=== PATIENT | female | born 1970 | race Caucasian/White ===

== ENCOUNTER → 2016-07-12 | Outpatient (CLI) | payer OTHER ==
--- NOTE | 2016-07-12 14:47 | REP ---
LEFT HIP, TWO VIEWS: HISTORY: Bursitis. There is no acute fracture or dislocation. The joint space is normal in appearance. IMPRESSION: There is no acute fracture or dislocation.
== END ==
LOC: M CLY 14:18
PROVIDERS: ATTEND Family Medicine
DX: M70.62 Trochanteric bursitis, left hip (principal); M25.552 Pain in left hip

== ENCOUNTER → 2016-07-12 | Outpatient (REF) | payer OTHER ==
[2016-07-12 17:55] LABS: ANION GAP 7 MEQ/L (8-16); BLOOD UREA NITROGEN 16 MG/DL (7-18); CALCIUM LEVEL 8.7 MG/DL (8.5-10.1); CARBON DIOXIDE LEVEL 31 MEQ/L (21-32); CHLORIDE LEVEL 100 MEQ/L (98-107); CREATININE FOR GFR 0.94 MG/DL (0.55-1.02); FREE T4 0.94 NG/DL (0.76-1.46); GLOMERULAR FILTRATION RATE > 60.0 (>58); GLUCOSE, FASTING 80 MG/DL (70-105); POTASSIUM SERUM 4.2 MEQ/L (3.5-5.1); SODIUM LEVEL 138 MEQ/L (136-145)
== END ==
LOC: M SFHCCLAY 13:57
PROVIDERS: ATTEND Family Medicine
DX: R53.81 Other malaise (principal)

== ENCOUNTER 2019-03-08 11:19 | Day surgery (SDC) | payer OTHER ==
[~2019-03-08] VITALS: Ht 157.5 cm; Wt 102.0 kg
[~2019-03-08 11:19] MED LIST: BENA20TA PO; ESCI5SOL3 PO; PROAAER10 INH; RANI15TA PO; SPIR-10 PO
[2019-03-08] MEDS ORDERED: fentaNYL 100 MCG/2 ML INJECTION (J3010) As Ordered ONE (11:56)
[2019-03-08] MEDS ORDERED: PROPOFOL 200 MG/20 ML VIAL As Ordered ONE (11:57)
[2019-03-08] MEDS ORDERED: LIDOCAINE 2% INJ 100 MG/5 ML SDV (FOR ANES.) As Ordered ONE (11:57)
--- NOTE | 2019-03-08 12:19 | ROOR ---
Patient Name: Jia Thomas Procedure Date: 03/08/2019 11:54 AM Date of : 1970 Age: 49 Room: [facility] Gender: Female Note Status: Finalized Procedure: Upper GI endoscopy Indications: Epigastric abdominal pain Providers: Nicko RYAN MD Referring MD: Dereck Persaud MD Requesting Provider: Medicines: Monitored Anesthesia Care Complications: No immediate complications. Procedure: Pre-Anesthesia Assessment: - The heart rate, respiratory rate, oxygen saturations, blood pressure, adequacy of pulmonary ventilation, and response to care were monitored throughout the procedure. The Endoscope was introduced through the mouth, and advanced to the second part of duodenum. The upper GI endoscopy was accomplished without difficulty. The patient tolerated the procedure well. Findings: Four cratered esophageal ulcers with no bleeding and no stigmata of recent bleeding were found 26 to 31 cm from the incisors. The largest lesion was 10 mm in largest dimension. This was biopsied with a cold forceps for histology. Multiple tongues of salmon-colored mucosa were present from 26 to 31 cm. The maximum longitudinal extent of these esophageal mucosal changes was 5 cm in length. Biopsies were taken with a cold forceps for histology. Small Hiatal Hernia. The exam was otherwise without abnormality. Impression: - Moderate to severe esophagitis and several large deep esophageal ulcers. Biopsied. - [place]-colored mucosa suspicious for long-segment Fraire's esophagus. Biopsied. - Small Hiatal Hernia. - The examination was otherwise normal. Recommendation: - Use Prilosec (omeprazole) 20 mg PO BID indefinitely. - (the script was sent to your pharmacy on file) - Telephone endoscopist for pathology results in 2 weeks. - Repeat upper endoscopy for surveillance based on pathology results. Nicko Ryan MD Nicko RYAN MD 03/08/2019 12:19:11 PM Electronically signed by Nicko RYAN MD Number of Addenda: 0 Note Initiated On: 03/08/2019 11:54 AM Estimated Blood Loss: Estimated blood loss: none.
--- NOTE | 2019-03-08 12:36 | ROOR ---
Patient Name: Jia Thomas Procedure Date: 03/08/2019 11:55 AM Date of : 1970 Age: 49 Room: [facility] Gender: Female Note Status: Finalized Procedure: Colonoscopy Indications: Change in bowel habits Providers: Nicko THOMAS MD Referring MD: Dereck Persaud MD Requesting Provider: Medicines: Monitored Anesthesia Care Complications: No immediate complications. Procedure: Pre-Anesthesia Assessment: - The heart rate, respiratory rate, oxygen saturations, blood pressure, adequacy of pulmonary ventilation, and response to care were monitored throughout the procedure. The Colonoscope was introduced through the anus and advanced to 10 cm into the ileum. The colonoscopy was performed without difficulty. The patient tolerated the procedure well. The quality of the bowel preparation was good. Findings: The perianal and digital rectal examinations were normal. A diminutive polyp was found in the appendiceal orifice. The polyp was sessile. The polyp was removed with a jumbo cold forceps. Resection and retrieval were complete. The exam was otherwise normal throughout the examined colon. The terminal ileum appeared normal. Biopsies for histology were taken with a cold forceps for evaluation of microscopic colitis. Impression: - One diminutive polyp at the appendiceal orifice, removed with a jumbo cold forceps. Resected and retrieved. - The colon is otherwise normal. - The examined portion of the ileum was normal. - Biopsies were taken with a cold forceps for evaluation of microscopic colitis. Recommendation: - Telephone endoscopist for pathology results in 2 weeks. - If the pathology report reveals adenomatous tissue, then repeat the colonoscopy for surveillance in 5 years. - Await pathology results. Nicko Thomas MD Nicko THOMAS MD 03/08/2019 12:36:33 PM Electronically signed by Nicko THOMAS MD Number of Addenda: 0 Note Initiated On: 03/08/2019 11:55 AM Estimated Blood Loss: Estimated blood loss: none.
[2019-03-08 13:10] VITALS: BP 162/86
[2019-03-08] MEDS ORDERED: NS 1,000 ML IV ONE (13:15)
== END 2019-03-08 13:20 | disposition home or self-care (01) ==
LOC: M OPP 11:19
PROVIDERS: ATTEND Internal Medicine Gastroenterology
DX: D12.1 Benign neoplasm of appendix (principal); R19.4 Change in bowel habit; K44.9 Diaphragmatic hernia without obstruction or gangrene; K22.10 Ulcer of esophagus without bleeding; K22.8 Other specified diseases of esophagus; R10.13 Epigastric pain; Z79.899 Other long term (current) drug therapy; Z88.2 Allergy status to sulfonamides; Z91.013 Allergy to seafood
CPT/HCPCS: 43239; 45380; 88305; J3010

== ENCOUNTER → 2019-06-04 | Outpatient (REF) | payer OTHER, BC | LOC: M LAB REF 18:50 | PROVIDERS: ATTEND Dermatology | DX: L82.1 Other seborrheic keratosis (principal) ==

== ENCOUNTER → 2019-07-23 | Outpatient (CLI) | payer BC ==
[~2019-07-23] MED LIST changes: +BCP PO; +OMEP1CAP73 PO
== END ==
LOC: M LABSMTC 10:36
PROVIDERS: ATTEND Anesthesiology
DX: Z01.818 Encounter for other preprocedural examination (principal); Z11.59 Encounter for screening for other viral diseases

== ENCOUNTER 2019-07-26 07:47 | Day surgery (SDC) | payer BC ==
[~2019-07-26] VITALS: Ht 157.5 cm; Wt 104.8 kg
[~2019-07-26 07:47] MED LIST changes: +NS 1,000 ML IV ONE
[2019-07-26] MEDS ORDERED: fentaNYL 100 MCG/2 ML INJECTION (J3010) As Ordered ONE (09:03)
[2019-07-26] MEDS ORDERED: LIDOCAINE 2% 100MG/5ML SDV (FOR ANES.) As Ordered ONE (09:03)
[2019-07-26] MEDS ORDERED: propofoL 200 MG/20 ML VIAL As Ordered ONE (09:03)
--- NOTE | 2019-07-26 09:30 | ROOR ---
Patient Name: Jia Thomas Procedure Date: 07/26/2019 8:53 AM Date of : 1970 Age: 49 Room: [facility] Gender: Female Note Status: Finalized Procedure: Upper GI endoscopy Indications: Surveillance procedure, Surveillance for malignancy due to personal history of Fraire's esophagus, Dysphagia, Follow-up of esophageal ulcer Providers: Nicko RYAN MD Referring MD: Dereck Persaud MD Requesting Provider: Medicines: Monitored Anesthesia Care Complications: No immediate complications. Procedure: Pre-Anesthesia Assessment: - The heart rate, respiratory rate, oxygen saturations, blood pressure, adequacy of pulmonary ventilation, and response to care were monitored throughout the procedure. The Endoscope was introduced through the mouth, and advanced to the second part of duodenum. The upper GI endoscopy was accomplished without difficulty. The patient tolerated the procedure well. Findings: There were esophageal mucosal changes consistent with long-segment Fraire's esophagus present in the lower third of the esophagus. The maximum longitudinal extent of these mucosal changes was 4 cm in length. The esophageal ulcers seen on previous exam have healed. small nodularities/scars are present along with mucosal cicatrization. Mucosa was biopsied with a cold forceps for histology randomly in the lower third of the esophagus and from 27 to 32 cm from the incisors. A total of 3 specimen bottles were sent to pathology. One benign-appearing, intrinsic moderate stenosis/cicatrization was found at the gastroesophageal junction. This stenosis measured 1 cm (in length). The stenosis was traversed. A TTS dilator was passed through the scope. Dilation with a 15-16.5-18 mm balloon dilator was performed to 16.5 mm. The dilation site was examined and showed moderate mucosal disruption and moderate improvement in luminal narrowing. A medium amount of food (residue) was found in the gastric body. Lavaged/removed. (Presence of food after 8 hour fast is consistent with Delayed Gastric emptying/Gastroparesis) A medium-sized hiatal hernia was present. The entire examined stomach was normal. The examined duodenum was normal. Impression: - Esophageal mucosal changes consistent with 5 cm long-segment Fraire's esophagus. Biopsied. - Benign-appearing esophageal stenosis. Dilated. - A medium amount of food (residue) in the stomach, consistent with gastroparesis. - Medium-sized hiatal hernia. - Normal stomach. - Normal examined duodenum. Recommendation: - Continue present medications. (omeprazole twice a day for Barretts esophagus). - Repeat EGD for barrets esophagus surveillance will depend on todays biopsy. - Call my office in about 2 weeks for pathology results and recommendations. - Your stomach had food contents from your last meal. This is a sign that your stomach does not empty well (gastroparesis). You will need to adjust your diet. - Gastroparesis diet: - Eat smaller, more frequent meals throughout the day. - Low fat diet. - Liquid/soft foods are tolerated better than solid foods. - Low fiber/well cooked vegetables are tolerated better than high fiber/fibrous foods/raw vegetables. - Avoid medications that inhibit gastric/intestinal motility such as narcotic medications. Nicko Ryan MD Nicko RYAN MD 07/26/2019 9:30:00 AM Electronically signed by Nicko RYAN MD Number of Addenda: 0 Note Initiated On: 07/26/2019 8:53 AM Estimated Blood Loss: Estimated blood loss: none.
[2019-07-26 09:57] VITALS: BP 157/80
== END 2019-07-26 10:08 | disposition home or self-care (01) ==
LOC: M OPP 07:47
PROVIDERS: ATTEND Internal Medicine Gastroenterology
DX: K22.2 Esophageal obstruction (principal); K44.9 Diaphragmatic hernia without obstruction or gangrene; K22.70 Barrett's esophagus without dysplasia; R13.10 Dysphagia, unspecified; Z88.2 Allergy status to sulfonamides; Z88.4 Allergy status to anesthetic agent; Z91.013 Allergy to seafood; Z91.040 Latex allergy status
CPT/HCPCS: 43239; 43249; 88305; J3010

== ENCOUNTER → 2019-11-05 | Outpatient (REF) | payer BC ==
[~2019-11-05] MED LIST changes: -NS 1,000 ML IV ONE
[2019-12-08 15:29] LABS: BASO # 0.1 10^3/uL (0.0-0.2); BASO % 0.9 % (0.0-1.0); EOS # 0.5 10^3/uL (0.0-0.5); EOS % 8.3 % (0.0-3.0); HEMATOCRIT 38.7 % (36.0-47.0); HEMOGLOBIN 12.7 g/dl (12.0-15.5); LYMPH # 1.2 10^3/uL (1.5-5.0); LYMPH % 21.5 % (24.0-44.0); MEAN CORPUSCULAR HEMOGLOBIN 30.5 pg (27.0-33.0); MEAN CORPUSCULAR HGB CONC 32.8 g/dl (32.0-36.5); MONO # 0.6 10^3/uL (0.0-0.8); MONO % 9.7 % (0.0-5.0); NEUTROPHILS # 3.4 10^3/uL (1.5-8.5); NEUTROPHILS % 59.3 % (36.0-66.0); PLATELET COUNT, AUTOMATED 271 10^3/uL (150-450); RED BLOOD COUNT 4.16 10^6/uL (4.00-5.40); WHITE BLOOD COUNT 5.8 10^3/uL (4.0-10.0)
[2019-12-20 16:39] LABS: ALBUMIN 3.8 GM/DL (3.2-5.2); ALT/SGPT 25 U/L (12-78); BILIRUBIN,TOTAL 0.5 MG/DL (0.2-1.0); BLOOD UREA NITROGEN 9 MG/DL (7-18); CALCIUM LEVEL 8.8 MG/DL (8.5-10.1); CARBON DIOXIDE LEVEL 28 MEQ/L (21-32); CHLORIDE LEVEL 105 MEQ/L (98-107); FERRITIN 28 NG/ML (8-252); GLOMERULAR FILTRATION RATE > 60.0 (>58); GLUCOSE, FASTING 87 MG/DL (70-100); IRON (FE) 55 UG/DL (50-170); PHOSPHORUS LEVEL 2.8 MG/DL (2.5-4.9); POTASSIUM SERUM 3.6 MEQ/L (3.5-5.1); SODIUM LEVEL 139 MEQ/L (136-145); TOTAL 25(OH) VITAMIN D 29.7 NG/ML (30.0-100.0); TOTAL IRON BINDING CAPACITY 250 UG/DL (250-450); TOTAL PROTEIN 6.9 GM/DL (6.4-8.2); VITAMIN B12 LEVEL 744 PG/ML (247-911)
[2019-12-20 16:40] LABS: HEMOGLOBIN A1c 5.3 %
[2019-12-23 08:32] LABS: HEMATOCRIT 38.7 % (36.0-47.0)
== END ==
LOC: M LABDRAWC 12:01
PROVIDERS: ATTEND Surgery
DX: K91.2 Postsurgical malabsorption, not elsewhere classified (principal); E55.9 Vitamin D deficiency, unspecified; Z98.84 Bariatric surgery status

== ENCOUNTER → 2020-06-18 | Outpatient (REF) | payer BC | LOC: M SFHCWAGY 17:16 | PROVIDERS: ATTEND Nurse Practitioner Family | DX: Z12.4 Encounter for screening for malignant neoplasm of cervix (principal) ==

== ENCOUNTER → 2020-06-18 | Outpatient (CLI) | payer BC ==
--- NOTE | 2020-06-18 16:21 | REPMRS ---
Patient History The patient states she had a clinical breast exam in 05/2020 Patient is nulliparous. Family history of breast cancer at age 45 in maternal aunt, colorectal cancer at age 50 or over in maternal grandmother. Digital Woman Screen Mammo: June 18, 2020 - Exam #: [id number] Bilateral CC and MLO view(s) were taken. Technologist: Marybel Bean, Technologist No prior studies available for comparison. FINDINGS: There are scattered fibroglandular densities. The Volpara volumetric breast density category is: B. There is no evidence of dominant mass, architectural distortion, or grouped microcalcification typical of malignancy. 3-D tomosynthesis shows no additional findings. Assessment: BI-RADS/ACR category 1 mammogram. Negative Mammogram. Recommendation Routine screening mammogram of both breasts in 1 year (for women over age 40). This patient's [facility] Lifetime Breast Cancer RIsk is estimated at 17.6 %. This mammogram was interpreted with the aid of an FDA-approved computer-aided dectection system. Electronically Signed By: Deyvi Johnson MD 06/18/20 9981
== END ==
LOC: M WHC 14:59
PROVIDERS: ATTEND Nurse Practitioner Family
DX: Z12.31 Encounter for screening mammogram for malignant neoplasm of breast (principal); Z80.3 Family history of malignant neoplasm of breast

== ENCOUNTER → 2020-06-29 | Outpatient (REF) | payer BC | LOC: M SFHCWAGY 13:28 | PROVIDERS: ATTEND Nurse Practitioner Women's Health | DX: R87.612 Low grade squamous intraepithelial lesion on cytologic smear of cervix (LGSIL) (principal) ==

== ENCOUNTER → 2020-07-17 | Outpatient (REF) | payer BC ==
[2020-07-17 16:15] LABS: BASO # 0.1 10^3/uL (0.0-0.2); BASO % 0.9 % (0.0-1.0); EOS # 0.2 10^3/uL (0.0-0.5); EOS % 3.4 % (0.0-3.0); HEMATOCRIT 39.2 % (36.0-47.0); HEMOGLOBIN 13.2 g/dl (12.0-15.5); LYMPH # 1.2 10^3/uL (1.5-5.0); LYMPH % 17.7 % (24.0-44.0); MEAN CORPUSCULAR HEMOGLOBIN 30.5 pg (27.0-33.0); MEAN CORPUSCULAR HGB CONC 33.7 g/dl (32.0-36.5); MEAN CORPUSCULAR VOLUME 90.5 fl (80.0-96.0); MONO # 0.6 10^3/uL (0.0-0.8); MONO % 9.1 % (2.0-8.0); NEUTROPHILS # 4.8 10^3/uL (1.5-8.5); NEUTROPHILS % 68.6 % (36.0-66.0); PLATELET COUNT, AUTOMATED 301 10^3/uL (150-450); RED BLOOD COUNT 4.33 10^6/uL (4.00-5.40)
[2020-07-17 16:20] LABS: HEMATOCRIT 39.6 % (36.0-47.0)
[2020-07-17 16:45] LABS: ALBUMIN 3.9 GM/DL (3.2-5.2); ALT/SGPT 16 U/L (12-78); BILIRUBIN,TOTAL 1.1 MG/DL (0.2-1.0); BLOOD UREA NITROGEN 10 MG/DL (7-18); CALCIUM LEVEL 9.5 MG/DL (8.5-10.1); CARBON DIOXIDE LEVEL 30 MEQ/L (21-32); CHLORIDE LEVEL 103 MEQ/L (98-107); CREATININE FOR GFR 0.78 MG/DL (0.55-1.30); FERRITIN 9 NG/ML (8-252); GLOMERULAR FILTRATION RATE > 60.0 (>58); GLUCOSE, FASTING 68 MG/DL (70-100); IRON (FE) 90 UG/DL (50-170); MAGNESIUM LEVEL 2.2 MG/DL (1.8-2.4); PERCENT SATURATION 23.9 % (13.2-45.0); PHOSPHORUS LEVEL 2.9 MG/DL (2.5-4.9); POTASSIUM SERUM 3.5 MEQ/L (3.5-5.1); SODIUM LEVEL 138 MEQ/L (136-145); TOTAL IRON BINDING CAPACITY 377 UG/DL (250-450); TOTAL PROTEIN 7.7 GM/DL (6.4-8.2)
[2020-07-17 16:51] LABS: TOTAL 25(OH) VITAMIN D 20.4 NG/ML (30.0-100.0); VITAMIN B12 LEVEL 645 PG/ML (247-911)
[2020-07-17 17:10] LABS: HEMOGLOBIN A1c 5.4 %
== END ==
LOC: M LABDRAWC 15:49
PROVIDERS: ATTEND Physician Assistant
DX: K91.2 Postsurgical malabsorption, not elsewhere classified (principal); Z98.84 Bariatric surgery status; E55.9 Vitamin D deficiency, unspecified; Z86.39 Personal history of other endocrine, nutritional and metabolic disease

== ENCOUNTER → 2020-07-17 | Outpatient (REF) | payer BC ==
[2020-07-17 16:49] LABS: THYROID STIMULATING HORMONE 2.42 uIU/ML (0.358-3.740)
== END ==
LOC: M SFHCCLAY 11:39
PROVIDERS: ATTEND Family Medicine
DX: R53.82 Chronic fatigue, unspecified (principal)

== ENCOUNTER → 2021-05-19 | Outpatient (REF) | payer BC | LOC: M SFHCCLAY 11:30 | PROVIDERS: ATTEND Family Medicine | DX: Z53.9 Procedure and treatment not carried out, unspecified reason (principal); J45.30 Mild persistent asthma, uncomplicated; I10 Essential (primary) hypertension; Z98.84 Bariatric surgery status ==

== ENCOUNTER → 2021-07-14 | Outpatient (REF) | payer BC | LOC: M PLALAB 12:32 | PROVIDERS: ATTEND Advanced Practice Midwife | DX: Z12.4 Encounter for screening for malignant neoplasm of cervix (principal); R87.612 Low grade squamous intraepithelial lesion on cytologic smear of cervix (LGSIL) ==

== ENCOUNTER → 2021-07-14 | Outpatient (CLI) | payer BC | LOC: M PLALAB 16:04 | PROVIDERS: ATTEND Advanced Practice Midwife | DX: Z80.3 Family history of malignant neoplasm of breast (principal); Z80.0 Family history of malignant neoplasm of digestive organs; Z80.8 Family history of malignant neoplasm of other organs or systems ==

== ENCOUNTER → 2021-07-14 | Outpatient (CLI) | payer BC | LOC: M WHC 13:25 | PROVIDERS: ATTEND Advanced Practice Midwife | DX: Z12.31 Encounter for screening mammogram for malignant neoplasm of breast (principal) ==

== ENCOUNTER → 2021-07-14 | Outpatient (REF) | payer BC | LOC: M SFHCWAGY 18:29 | PROVIDERS: ATTEND Advanced Practice Midwife | DX: Z01.419 Encounter for gynecological examination (general) (routine) without abnormal findings (principal); Z12.4 Encounter for screening for malignant neoplasm of cervix; R87.612 Low grade squamous intraepithelial lesion on cytologic smear of cervix (LGSIL) | CPT/HCPCS: 87624; G0123 ==

== ENCOUNTER → 2021-11-05 | Outpatient (REF) | payer BC ==
[2021-11-05 17:53] LABS: HEMATOCRIT 36.2 % (36.0-47.0); HEMOGLOBIN 11.7 g/dl (12.0-15.5); MEAN CORPUSCULAR HEMOGLOBIN 28.3 pg (27.0-33.0); MEAN CORPUSCULAR HGB CONC 32.3 g/dl (32.0-36.5); MEAN CORPUSCULAR VOLUME 87.4 fl (80.0-96.0); PLATELET COUNT, AUTOMATED 324 10^3/uL (150-450); RED BLOOD COUNT 4.14 10^6/uL (4.00-5.40); WHITE BLOOD COUNT 6.4 10^3/uL (4.0-10.0)
[2021-11-05 18:06] LABS: ERYTHROCYTE SEDIMENTATION RATE 37 mm/hr (0-20)
[2021-11-05 18:45] LABS: ALBUMIN 3.5 GM/DL (3.2-5.2); ALT/SGPT 16 U/L (12-78); BILIRUBIN,TOTAL 1.1 MG/DL (0.2-1.0); BLOOD UREA NITROGEN 8 MG/DL (7-18); CALCIUM LEVEL 9.1 MG/DL (8.5-10.1); CARBON DIOXIDE LEVEL 32 MEQ/L (21-32); CHLORIDE LEVEL 99 MEQ/L (98-107); CHOLESTEROL LEVEL 190 MG/DL (<200); CHOLESTEROL RISK RATIO 3.064 (<5); CREATININE FOR GFR 0.76 MG/DL (0.55-1.30); GLOMERULAR FILTRATION RATE > 60.0 (>58); GLUCOSE, FASTING 87 MG/DL (70-100); HDL CHOLESTEROL 62 MG/DL (>40); LDL CHOLESTEROL 110 MG/DL (<100); NON-HDL-C 128 MG/DL; POTASSIUM SERUM 3.5 MEQ/L (3.5-5.1); SODIUM LEVEL 138 MEQ/L (136-145); THYROID STIMULATING HORMONE 0.589 uIU/ML (0.358-3.740); TOTAL PROTEIN 7.3 GM/DL (6.4-8.2); TRIGLYCERIDES LEVEL 91 MG/DL (<150)
[2021-11-09 15:35] LABS: ALBUMIN 3.63 GM/DL (3.29-5.55); ALBUMIN % 49.7 % (55.8-66.1); ALPHA-1-GLOBULINS 0.29 GM/DL (0.17-0.41); ALPHA-2-GLOBULINS 0.91 GM/DL (0.42-0.99); ALPHA-2-GLOBULINS % 12.5 % (7.1-11.8); BETA-1-GLOBULINS 0.58 GM/DL (0.28-0.60); BETA-1-GLOBULINS % 7.9 % (4.7-7.2); BETA-2-GLOBULINS % 6.9 % (3.2-6.5); GAMMA GLOBULINS 1.39 GM/DL (0.65-1.58)
== END ==
LOC: M SFHCCLAY 10:40
PROVIDERS: ATTEND Family Medicine
DX: I10 Essential (primary) hypertension (principal); J45.30 Mild persistent asthma, uncomplicated; H34.8310 Tributary (branch) retinal vein occlusion, right eye, with macular edema; K21.9 Gastro-esophageal reflux disease without esophagitis

== ENCOUNTER → 2022-02-04 | Outpatient (REF) | payer BC | LOC: M SFHCCLAY 13:33 | PROVIDERS: ATTEND Family Medicine | DX: D89.2 Hypergammaglobulinemia, unspecified (principal); R70.0 Elevated erythrocyte sedimentation rate ==

== ENCOUNTER 2022-11-10 12:28 | Day surgery (SDC) | payer BC ==
[~2022-11-10] VITALS: Ht 157.5 cm; Wt 76.9 kg
[~2022-11-10 12:28] MED LIST changes: +B-12100010 PO; +BIOT2500 PO; +LEXA1TAB2 PO; +LIDOCAINE 2% 100MG/5ML SDV (FOR ANES.) As Ordered ONE; +METO1TAB32 PO; +NS 1,000 ML IV ONE; +OMEP40CA5 PO; +PROBCAP14 PO; +VENTAER INH; +VITA500075 PO; +propofoL 200 MG/20 ML VIAL As Ordered ONE; +zinc PO
[2022-11-10] MEDS ORDERED: fentaNYL 100 MCG/2 ML INJECTION As Ordered ONE (12:34)
[2022-11-10 14:31] VITALS: BP 167/81; TEMP 97.2; O2SAT 100
== END 2022-11-10 14:30 | disposition home or self-care (01) ==
LOC: M OPP 12:28
PROVIDERS: ATTEND Internal Medicine Gastroenterology
DX: K22.70 Barrett's esophagus without dysplasia (principal); K44.9 Diaphragmatic hernia without obstruction or gangrene; Z98.0 Intestinal bypass and anastomosis status; Z88.2 Allergy status to sulfonamides; Z88.3 Allergy status to other anti-infective agents; Z79.899 Other long term (current) drug therapy; Z91.013 Allergy to seafood; Z91.040 Latex allergy status; Z98.84 Bariatric surgery status
CPT/HCPCS: 43239; 88305; J3010

== ENCOUNTER → 2023-05-15 | Outpatient (REF) | payer BC ==
[~2023-05-15] MED LIST changes: -LIDOCAINE 2% 100MG/5ML SDV (FOR ANES.) As Ordered ONE; -NS 1,000 ML IV ONE; -propofoL 200 MG/20 ML VIAL As Ordered ONE
== END ==
LOC: M SFHCDERM 17:35
PROVIDERS: ATTEND Physician Assistant
DX: D49.2 Neoplasm of unspecified behavior of bone, soft tissue, and skin (principal)

== ENCOUNTER → 2023-06-29 | Outpatient (REF) | payer BC ==
[2023-06-29 17:34] LABS: HEMATOCRIT 29.6 % (36.0-47.0); HEMOGLOBIN 8.6 g/dl (12.0-15.5); MEAN CORPUSCULAR HEMOGLOBIN 21.8 pg (27.0-33.0); MEAN CORPUSCULAR HGB CONC 29.1 g/dl (32.0-36.5); MEAN CORPUSCULAR VOLUME 75.1 fl (80.0-96.0); PLATELET COUNT, AUTOMATED 484 10^3/uL (150-450); RED BLOOD COUNT 3.94 10^6/uL (4.00-5.40); WHITE BLOOD COUNT 6.7 10^3/uL (4.0-10.0)
[2023-06-29 18:09] LABS: ALBUMIN 3.4 G/DL (3.2-5.2); ALKALINE PHOSPHATASE 128 U/L (46-116); ALT/SGPT 13 U/L (7.0-40); AST/SGOT 20 U/L (<34); BILIRUBIN,TOTAL 0.8 MG/DL (0.3-1.2); BLOOD UREA NITROGEN 10 MG/DL (9-23); CALCIUM LEVEL 9.4 MG/DL (8.5-10.1); CARBON DIOXIDE LEVEL 27 MMOL/L (20-31); CHLORIDE LEVEL 105 MMOL/L (98-107); CHOLESTEROL LEVEL 154 MG/DL (<200); CREATININE FOR GFR 0.68 MG/DL (0.55-1.30); GLOMERULAR FILTRATION RATE > 60.0 (>51); GLUCOSE, FASTING 92 MG/DL (60-100); HDL CHOLESTEROL 51.3 MG/DL (>40); LDL CHOLESTEROL 89.5 MG/DL (<100); NON-HDL-C 102.7 MG/DL; PTH INTACT 86.1 PG/ML (18.5-88.0); SODIUM LEVEL 135 MMOL/L (136-145); TOTAL PROTEIN 7.1 G/DL (5.7-8.2); TRIGLYCERIDES LEVEL 66 MG/DL (<150)
[2023-06-29 18:10] LABS: TOTAL 25(OH) VITAMIN D 29.9 NG/ML (20.0-100.0)
[2023-06-29 18:27] LABS: HEMOGLOBIN A1c 5.3 % (4.0-6.0)
== END ==
LOC: M SFHCCLAY 10:10
PROVIDERS: ATTEND Family Medicine
DX: Z98.84 Bariatric surgery status (principal); I10 Essential (primary) hypertension; J45.30 Mild persistent asthma, uncomplicated; H34.8310 Tributary (branch) retinal vein occlusion, right eye, with macular edema; K21.9 Gastro-esophageal reflux disease without esophagitis

== ENCOUNTER → 2023-07-31 | Outpatient (REF) | payer BC | LOC: M SFHCWAGY 10:19 | PROVIDERS: ATTEND Nurse Practitioner Family | DX: Z12.4 Encounter for screening for malignant neoplasm of cervix (principal) | CPT/HCPCS: 87624; G0123 ==

== ENCOUNTER → 2023-07-31 | Outpatient (CLI) | payer BC | LOC: M WHC 15:28 | PROVIDERS: ATTEND Nurse Practitioner Family | DX: Z12.31 Encounter for screening mammogram for malignant neoplasm of breast (principal) ==

== ENCOUNTER → 2023-08-08 | Outpatient (CLI) | payer BC | LOC: M WHC 08:16 | PROVIDERS: ATTEND Nurse Practitioner Family | DX: Z12.31 Encounter for screening mammogram for malignant neoplasm of breast (principal) | CPT/HCPCS: 76642; 77065; G0279 ==

== ENCOUNTER → 2024-02-12 | Outpatient (CLI) | payer BC | LOC: M WHC 14:18 | PROVIDERS: ATTEND Nurse Practitioner Family | DX: R92.8 Other abnormal and inconclusive findings on diagnostic imaging of breast (principal); Z80.3 Family history of malignant neoplasm of breast; R92.312 Mammographic fatty tissue density, left breast; N63.20 Unspecified lump in the left breast, unspecified quadrant | CPT/HCPCS: 77065; G0279 ==

== ENCOUNTER → 2024-04-18 | Outpatient (REF) | payer BC | LOC: M SFHCCLAY 14:24 | PROVIDERS: ATTEND Physician Assistant | DX: J02.9 Acute pharyngitis, unspecified (principal) ==

== ENCOUNTER → 2024-07-19 | Outpatient (REF) | payer BC ==
[2024-07-19 18:46] LABS: HEMATOCRIT 33.7 % (36.0-47.0); HEMOGLOBIN 10.1 g/dl (12.0-15.5); MEAN CORPUSCULAR HEMOGLOBIN 24.8 pg (27.0-33.0); MEAN CORPUSCULAR VOLUME 82.6 fl (80.0-96.0); PLATELET COUNT, AUTOMATED 283 10^3/uL (150-450); RED BLOOD COUNT 4.08 10^6/uL (4.00-5.40); WHITE BLOOD COUNT 6.8 10^3/uL (4.0-10.0)
[2024-07-19 18:48] LABS: HEMOGLOBIN A1c 5.2 % (4.0-6.0)
[2024-07-19 18:54] LABS: ALBUMIN 3.6 G/DL (3.2-5.2); ALKALINE PHOSPHATASE 90 U/L (35-104); ALT/SGPT 19 U/L (7.0-40); AST/SGOT 18 U/L (<34); BILIRUBIN,TOTAL 0.8 MG/DL (0.3-1.2); BLOOD UREA NITROGEN 11 MG/DL (9-23); CALCIUM LEVEL 8.9 MG/DL (8.5-10.1); CARBON DIOXIDE LEVEL 26 MMOL/L (20-31); CHLORIDE LEVEL 106 MMOL/L (98-107); CHOLESTEROL LEVEL 161 MG/DL (<200); CREATININE FOR GFR 0.72 MG/DL (0.55-1.30); FERRITIN 5.3 NG/ML (7.3-270.7); FOLATE 20.7 NG/ML (>5.4); GLOMERULAR FILTRATION RATE > 90.0 (>51); GLUCOSE, FASTING 84 MG/DL (60-100); HDL CHOLESTEROL 53.5 MG/DL (>40); IRON (FE) 28 UG/DL (50-170); LDL CHOLESTEROL 93.7 MG/DL (<100); NON-HDL-C 107.5 MG/DL; PERCENT SATURATION 7.5 % (13.2-45.0); POTASSIUM SERUM 4.4 MMOL/L (3.5-5.1); SODIUM LEVEL 140 MMOL/L (136-145); TOTAL 25(OH) VITAMIN D 38.4 NG/ML (20.0-100.0); TOTAL IRON BINDING CAPACITY 372 UG/DL (250-425); TOTAL PROTEIN 6.9 G/DL (5.7-8.2); TRIGLYCERIDES LEVEL 69 MG/DL (<150)
[2024-07-19 18:55] LABS: VITAMIN B12 LEVEL 463 PG/ML (211-911)
== END ==
LOC: M SFHCCLAY 09:59
PROVIDERS: ATTEND Physician Assistant
DX: J45.30 Mild persistent asthma, uncomplicated (principal); K22.70 Barrett's esophagus without dysplasia; I10 Essential (primary) hypertension; Z98.84 Bariatric surgery status

== ENCOUNTER 2024-08-02 09:10 | Outpatient (CLI) | payer BC ==
[~2024-08-02] VITALS: Ht 157.5 cm; Wt 76.8 kg
[~2024-08-02 09:10] MED LIST changes: +ALBUTEROL SULFATE 2.5MG/0.5ML INH CONCENTRATE NEB SOLN INH PRN; +EPINEPHrine INJ 1 MG/ML 1ML AMP IM PRN; +diphenhydrAMINE 50MG/ML VIAL IV PRN; +methylPREDNISolone 125MG 2ML VIAL IV PRN
[2024-08-02 09:20] VITALS: BP 140/70; O2SAT 100
[2024-08-02] MEDS: IRON SUCROSE 25 MG in NS 23.75 ML IV ONE (09:55)
[2024-08-02] MEDS: NS IV ONE (10:52)
[2024-08-02] MEDS: IRON SUCROSE IV ONE (10:52)
[2024-08-02] MEDS: IRON SUCROSE COMPLEX IV ONE (10:52)
[2024-08-02 12:00] VITALS: BP 160/79; O2SAT 100
[2024-08-02 13:00] VITALS: BP 159/84; O2SAT 99
[2024-08-02 14:00] VITALS: BP 161/88; O2SAT 99
[2024-08-02 15:00] VITALS: BP 170/80; O2SAT 100
== END 2024-08-02 15:25 ==
LOC: M INFU 09:10
PROVIDERS: ATTEND Physician Assistant
DX: D50.9 Iron deficiency anemia, unspecified (principal); Z88.2 Allergy status to sulfonamides; Z91.013 Allergy to seafood; Z91.040 Latex allergy status; Z91.048 Other nonmedicinal substance allergy status
CPT/HCPCS: 96365; 96366; J1756

== ENCOUNTER → 2024-10-23 | Outpatient (REF) | payer BC ==
[~2024-10-23] MED LIST changes: -ALBUTEROL SULFATE 2.5MG/0.5ML INH CONCENTRATE NEB SOLN INH PRN; -EPINEPHrine INJ 1 MG/ML 1ML AMP IM PRN; -diphenhydrAMINE 50MG/ML VIAL IV PRN; -methylPREDNISolone 125MG 2ML VIAL IV PRN
[2024-10-23 18:48] LABS: IRON (FE) 76.0 UG/DL (50-170); PERCENT SATURATION 26.8 % (13.2-45.0)
[2024-10-23 18:59] LABS: PLATELET COUNT, AUTOMATED 236 10^3/uL (150-450)
== END ==
LOC: M SFHCCLAY 13:07
PROVIDERS: ATTEND Physician Assistant
DX: D50.9 Iron deficiency anemia, unspecified (principal)

== ENCOUNTER → 2024-12-02 | Outpatient (CLI) | payer BC | LOC: M WHC 08:51 | PROVIDERS: ATTEND Obstetrics & Gynecology | DX: Z12.31 Encounter for screening mammogram for malignant neoplasm of breast (principal); R92.313 Mammographic fatty tissue density, bilateral breasts | CPT/HCPCS: 77066; G0279 ==

== ENCOUNTER → 2024-12-02 | Outpatient (REF) | payer BC ==
[2024-12-04 13:24] LABS: HPV APTIMA Not Detected (Not Detected)
== END ==
LOC: M PLALAB 09:30
PROVIDERS: ATTEND Obstetrics & Gynecology
DX: Z01.419 Encounter for gynecological examination (general) (routine) without abnormal findings (principal); R87.610 Atypical squamous cells of undetermined significance on cytologic smear of cervix (ASC-US)
CPT/HCPCS: 87624; G0123